=== PATIENT | male | born 1965 | race Hispanic/Latino ===

== ENCOUNTER 2017-11-10 13:18 | Emergency (ER) | payer OTHER ==
[~2017-11-10] VITALS: Ht 170.2 cm; Wt 79.4 kg
--- OUTSIDE RECORDS SUMMARY | ~2017-11-10 | XMS | Clinical Summary ---
Demographics + + + | Address | [address] | | | [place] [address] | + + + | Home Phone | | + + + | Preferred Language | Unknown | + + + | Marital Status | Single | + + + | Anglican Affiliation | UNKNOWN | + + + | Race | Other Race | + + + | Ethnic Group | or | + + + Author + + + | Author | [facility] | + + + | Organization | [facility] | + + + | Address | Unknown | + + + | Phone | Unavailable | + + + Support +------+ +---------+ + | Name | Relationship | Address | Phone | +------+ +---------+ + | none | ECON | Unknown | Unavailable | +------+ +---------+ + Care Team Providers + +------+ + | Care Electronic Device Monitor Name | Role | Phone | + +------+ + | None Per Patient, None Per | PP | Unavailable | | Pt | | | + +------+ + Allergies + + + + + + | Active Allergy | Reactions | Severity | Noted | Comments | | | | | Date | | + + + + + + | Terbinafine | Other (See Comments) | Low | 01/14/20 | Increased liver | | | | | 16 | enzymes | + + + + + + Current Medications + + +-------+---------+------+------+-------+ | Prescription | Sig. | Disp. | Refills | Star | End | Statu | | | | | | t | Date | s | | | | | | Date | | | + + +-------+---------+------+------+-------+ | | Take 1-2 tablets by | | | | | Activ | | HYDROcodone-acetamin | mouth | | | | | e | | ophen (NORCO) 5-325 | | | | | | | | mg per tablet | | | | | | | + + +-------+---------+------+------+-------+ | cyclobenzaprine | | | | 10/2 | | Activ | | (FLEXERIL) 10 mg | | | | 1/20 | | e | | tablet | | | | 15 | | | + + +-------+---------+------+------+-------+ | fish oil-omega-3 | Take by mouth | | | | | Activ | | fatty acids | | | | | | e | | 340-1,000 mg capsule | | | | | | | + + +-------+---------+------+------+-------+ | gabapentin | 1 tab PO nightly x 5 | | | 02/2 | | Activ | | (NEURONTIN) 300 mg | days, then increase | | | 5/20 | | e | | capsule | to 1 tab PO BID x 5 | | | 16 | | | | | days. If continue | | | | | | | | to tolerate well, | | | | | | | | increase to 1 tab PO | | | | | | | | TID for nerve pain | | | | | | + + +-------+---------+------+------+-------+ Active Problems No known active problems Social History + +-------+ +--------+------+ | Tobacco Use | Types | Packs/Day | Years | Date | | | | | Used | | + +-------+ +--------+------+ | Never Smoker | | | | | + +-------+ +--------+------+ + + +---------+ + | Alcohol Use | Drinks/We | oz/Week | Comments | | | ek | | | + + +---------+ + | No | 0 | 0.0 | | | | Standard | | | | | drinks or | | | | | | | | | | equivalen | | | | | t | | | + + +---------+ + + + + | Sex Assigned at | Date Recorded | | | | + + + | Not on file | | + + + Last Filed Vital Signs + + + + | Vital Sign | Reading | Time Taken | + + + + | Blood Pressure | 147/79 | 01/14/2016 12:58 PM PDT | + + + + | Pulse | 84 | 01/14/2016 12:58 PM PDT | + + + + | Temperature | - | - | + + + + | Respiratory Rate | - | - | + + + + | Oxygen Saturation | - | - | + + + + | Inhaled Oxygen | - | - | | Concentration | | | + + + + | Weight | 73.5 kg (162 lb) | 01/14/2016 12:58 PM PDT | + + + + | Height | 163.5 cm (5' 4.37") | 01/14/2016 12:58 PM PDT | + + + + | Body Mass Index | 27.49 | 01/14/2016 12:58 PM PDT | + + + + Plan of Treatment + + + + + | Health Maintenance | Due Date | Last Done | Comments | + + + + + | HIV Screening | | | | | | 1 | | | + + + + + | Tetanus | | | | | | 5 | | | + + + + + | Colon Cancer | | | | | Screening | 6 | | | + + + + + | IMM Influenza (#1) | | | | | | 7 | | | + + + + + Results Not on filefrom Last 3 Months Insurance + +--------+ +--------+-------+---------+ | Payer | Benefi | Subscriber | Type | Phone | Address | | | t Plan | ID | | | | | | / | | | | | | | Group | | | | | + +--------+ +--------+-------+---------+ | WC OTHER | WC | [id number] | Indemn | | | | | OTHER | 8 | ity | | | + +--------+ +--------+-------+---------+ + +--------+ +--------+ + + | Guarantor Name | Accoun | Relation to | Date | Phone | Billing Address | | | t Type | Patient | of | | | | | | | | | | + +--------+ +--------+ + + | KEMAL FUENTES | Worker | Self [birth year] | Home: | [address] | | | s Comp | | 1965 | [phone] | [place] [address] | | | | | | [phone] | | + +--------+ +--------+ + + | KEMAL FUENTES | Person | Self | [birth year] | Home: | [address] | | | al/Fam | | 1965 | +- | [place] [address] | | | lexie | | | [phone] | | + +--------+ +--------+ + +
--- OUTSIDE RECORDS SUMMARY | ~2017-11-10 | XMS | Clinical Summary ---
Demographics + + + | Address | [address] | | | [place] [address] | + + + | Home Phone | | + + + | Preferred Language | Unknown | + + + | Marital Status | Single | + + + | Mandaen Affiliation | UNKNOWN | + + + [...] Team Providers + +------+ + | Care Sustainability Officer Name | Role | Phone | + [...] +--------+-------+---------+ | WC OTHER | WC | [id number] | Indemn | | | | | [...] | 1965 | [phone] | [place] [address] | | | | | | [phone] | | + +--------+ +--------+ + + | KEMAL FUENTES | Person | Self | [birth year] | Home: | [address] | | | al/Fam | | 1965 | +- | [place] [address] | | | [place]ie | | | [phone] | | + +--------+ +--------+ + +
[~2017-11-10 13:18] MED LIST: NORCO 5-325 TA1 EACH PO
[2017-11-10] MEDS ORDERED: BACLOFEN10 MG PO (13:52)
[2017-11-10] MEDS ORDERED: KETOROLAC TROME10 MG PO (13:52)
== END 2017-11-10 14:12 | disposition home or self-care (01) ==
LOC: ED 13:18
DX: S50.01XA Contusion of right elbow, initial encounter (principal); M99.02 Segmental and somatic dysfunction of thoracic region; W01.0XXA Fall on same level from slipping, tripping and stumbling without subsequent striking against object, initial encounter
CPT/HCPCS: 99283